=== PATIENT | female | born 1985 | race Caucasian/White ===

== ENCOUNTER 2016-10-09 20:24 | Inpatient (IN) ==
[2016-10-09] MEDS ORDERED: BUTORPHANOL 2 MG/ML VIAL IV PRN (20:52)
[2016-10-09] MEDS ORDERED: ONDANSETRON 4 MG/2 ML VIAL IV PRN (20:52)
[2016-10-09] MEDS: LACTATED RINGERS 1,000 ML IV SCH (21:10)
[2016-10-09 21:17] LABS: Basophils % 0.2 % (0.0-0.8); Eosinophils % 0.2 % (0.00-10.9); Hematocrit 33.6 VOL% (35.7-47.0); Hemoglobin 11.8 GM/DL (12.0-16.0); Immature Granulocytes % 3.1 %; Immature Granulocytes Absolute 0.35 #; Lymphocytes # 1.3 10*3/uL (1.4-4.0); Lymphocytes % 11.6 % (21.3-54.2); Mean Corpuscular HGB Conc 35.1 GM/DL (32-36); Mean Corpuscular Hemoglobin 33 PG (27-34); Mean Corpuscular Volume 94.1 FL (87-102); Mean Platelet Volume 13.6 FL (9.6-12.0); Monocytes # 0.6 10*3/uL (0.11-0.8); Neutrophils # 9.1 10*3/uL (1.4-7.4); Neutrophils % 79.9 % (38.7-73.9); Platelet Count 120 T/CUMM (130-400); Red Blood Count 3.57 MC/CUMM (3.8-5.5); Red Cell Distribution Width 12.6 % (9.3-17.3); White Blood Count 11.4 T/CUMM (4-12)
[2016-10-09 21:46] LABS: Alanine Aminotransferase 107 U/L (13-56); Albumin 2.5 G/DL (3.4-5.0); Alkaline Phosphatase 190 U/L (45-117); Aspartate Amino Transferase 62 U/L (0-37); Bilirubin,Total < 0.39 MG/DL (0.2-1.0); Blood Urea Nitrogen 10 MG/DL (7-18); Glucose 144 MG/DL (74-106); Potassium 3.9 MMOL/L (3.5-5.1); Sodium 136 MMOL/L (136-145); Total Protein 5.8 G/DL (6.4-8.3)
[2016-10-09] MEDS ORDERED: DEXTROSE 50% 25 GM/50 ML VIAL IV PRN (21:52)
[2016-10-09] MEDS ORDERED: GLUCAGON 1 MG VIAL IM PRN (21:52)
[2016-10-10] MEDS ORDERED: TERBUTALINE 1 MG/1 ML VIAL SUBCUT ONE (00:58)
[2016-10-10] MEDS ORDERED: AMPICILLIN INJ 2,000 MG in SODIUM CHLORIDE 0.9% 100 ML IV SCH (01:00)
[2016-10-10] MEDS: LACTATED RINGERS 1,000 ML IV SCH (04:05)
[2016-10-10] MEDS ORDERED: OXYTOCIN/LR 20 UNIT/1,000 ML BAG IV SCH (06:00)
[2016-10-10] MEDS ORDERED: BUTORPHANOL 1 MG/ML VIAL IV ONE (06:10)
[2016-10-10] MEDS ORDERED: NOVOLOG SUBCUT SCH (07:30)
[2016-10-10] MEDS ORDERED: ONDANSETRON 4 MG/2 ML VIAL IV ONE (07:45)
[2016-10-10] MEDS ORDERED: ePHEDrine 50 MG/ML AMP IV PRN (07:45)
[2016-10-10] MEDS ORDERED: fentaNYL 2 MCG/ROPIV 0.2% EPID 150 ML EPIDURAL SCH (07:45)
[2016-10-10] MEDS ORDERED: diphenhydrAMINE 50 MG/1 ML VIAL IV PRN ×2 (07:45)
[2016-10-10] MEDS ORDERED: CITRIC ACID/SODIUM CITRATE 30 ML UDCUP PO ONE (07:45)
[2016-10-10] MEDS ORDERED: hydrOXYzine HCL 25 MG/1 ML VIAL IM PRN (07:45)
[2016-10-10] MEDS ORDERED: PROMETHAZINE 25 MG/1 ML VIAL IM ONE (07:45)
[2016-10-10] MEDS ORDERED: FAMOTIDINE 20 MG/2 ML VIAL IV ONE (07:45)
[2016-10-10] MEDS ORDERED: LIDOCAINE 1% 50 ML VIAL ONE (11:25)
[2016-10-10] MEDS ORDERED: miSOPROStol 200 MCG TABLET ONE (11:26)
[2016-10-10] MEDS ORDERED: METHYLERGONOVINE 0.2 MG/1 ML AMP ONE (11:26)
[2016-10-10] MEDS ORDERED: MEPERIDINE 50 MG/1 ML VIAL ONE (11:26)
[2016-10-10 11:37] LABS: Apearance,Urine Slightly Hazy (Clear); Bilirubin,Urine Negative (Negative); Blood, Urine Large mg/dL (Negative); Glucose,Urine (UA) >=500 mg/dL (Negative); Ketones,Urine 80 mg/dL (Negative); Mucus,Urine Occasional /LPF (Occasional); Nitrite,Urine Negative (Negative); Protein,Urine 30 MG/DL; RBC,Urine 158 /HPF (0-4); Squamous Epithelial Cell,Urine Occasional /HPF (0-10); Urine Color Yellow (Yellow); Urine Specific Gravity 1.011 (1.001-1.035); Urine Urobilinogen < 2.0 EU/DL (0.2-1.0); WBC,Urine 14 /HPF (0-6)
[2016-10-10] MEDS ORDERED: ONDANSETRON 4 MG/2 ML VIAL IV PRN (12:13)
[2016-10-10] MEDS ORDERED: OXYTOCIN/LR 20 UNIT/1,000 ML BAG IV ONE (12:13)
[2016-10-10] MEDS ORDERED: BENZOCAINE 20%/MENTHOL 0.5% SPRAY 56 GM CAN TOP PRN (12:13)
[2016-10-10] MEDS ORDERED: ACETAMINOPHEN 325 MG TABLET PO PRN (12:13)
[2016-10-10] MEDS ORDERED: oxyCODONE/ACETAMINOPHEN 5-325 MG TABLET PO PRN ×2 (12:13)
[2016-10-10] MEDS ORDERED: LANOLIN 50% CREAM 0.3 OZ TUBE TOP PRN (12:13)
[2016-10-10] MEDS ORDERED: MEASLES/MUMPS/RUBELLA VACCINE 0.5 ML VIAL SUBCUT ONE (12:13)
[2016-10-10] MEDS ORDERED: WITCH HAZEL PADS 100/JAR TOP PRN (12:13)
[2016-10-10] MEDS ORDERED: BISACODYL 10 MG SUPP RECTAL PRN (12:13)
[2016-10-10] MEDS ORDERED: HYDROCORTISONE 2.5% RECTAL CREAM 30 GM TUBE TOP PRN (12:13)
[2016-10-10] MEDS ORDERED: RHO(D) IMMUNE GLOBULIN 300 MCG SYRINGE IM ONE (12:13)
[2016-10-10] MEDS ORDERED: DIPH/TET/ACEL PERT BOOSTER VACCINE 0.5 ML VIAL IM ONE (12:13)
--- NOTE | 2016-10-10 12:13 | OB/GYN Progress Note ---
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 Chua dictating vaginal delivery And in LDR environment under sterile conditions, the patient progressed to completely dilated. She was allowed to push and under [epidural] anesthesia had a normal spontaneous vaginal delivery of a live born [male] unweighed [Apgars 9 and 9] over a first-degree midline tear. The 's nose and oropharynx were bulb and DeLee suctioned, and the infant had spontaneous cry after delivery. The cord was doubly clamped and cut and the was handed over to the pediatric team for care. Cord blood was obtained the placenta delivered spontaneously intact and IV Pitocin was done. There were no cervical tears. There were no periurethral tears. First-degree midline tear was repaired with 2-0 Monocryl suture in usual fashion under epidural anesthesia without complication estimated blood loss was 250 mL. There were no complications. The bladder was emptied using a catheter prior to delivery. All sponge needle and instrument counts were correct -3 at the end of the delivery. 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
--- NOTE | 2016-10-10 12:18 | OB/GYN History & Physical ---
History of Present Illness Chief complaint: 37 weeks IDDM with diminishing insulin requirements History of present illness: Ms. Ibarra is a 30 year old female 2 para 1 at 37 weeks estimated gestational age she received 2 doses of Celestone 24 hours apart at 36 and 6 weeks with insulin-dependent diabetes mellitus currently on an insulin pump who has had decreased insulin requirements late in her third trimester. She also has history of traumatic vaginal delivery previously resulting in complicated episiotomy repair. This case was discussed with Dr. Hurley and Dr. Vito Galloway and decision was made to induce at this time Via Cytotec and Pitocin as needed. Home Medications Medication Instructions Recorded Confirmed Type Aspirin 1 tablet PO DAILY 09/27/16 10/09/16 History Insulin Aspart [NovoLOG] 30 units SUBCUT TID W/MEALS 09/27/16 10/09/16 History Insulin Glargine [Lantus] 31 units SUBCUT BEDTIME 09/27/16 10/09/16 History Vits #90/Iron Fum/FA 1 tablet PO DAILY 10/09/16 10/09/16 History [ Formula Tablet] Allergies Allergy/AdvReac Type Severity Reaction Status Date / Time No Known Allergies Allergy Verified 09/27/16 08:47 12 point system: reviewed and no additional remarkable complaints except as stated Medical,Surgical,& Family Hx - Medical History HEENT: No history of: Eye Problem Endocrine: History of: Diabetes Mellitus (IDDM) (type 1 dm) Reproductive: No history of: Ectopic , Complication - Surgical History Reproductive Surgeries: Patient denies;: Section - Family History Family History: Reports;: Family Diabetes (pt's father type 2), Family Hypertension (pt's father), Family Stroke (mgm), Additional Family History ( father sleep apnea) - Social History Smoking Status: Never smoker Frequency of Alcohol Use: None Type of Drug Use: None 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: Vital Signs Temp Pulse Resp BP 10/10/16 07:35 97.7 F 10/10/16 04:00 97.7 F 75 18 113/61 10/10/16 00:00 97.2 F L 71 18 127/77 General appearance: no acute distress - Head Head exam: Present: normal inspection, normocephalic, atraumatic - Respiratory Respiratory exam: Present: clear to auscultation bilaterally - Breast Breasts: as per HPI Menstruation: as per HPI - Cardiovascular Cardiovascular exam: Present: regular rate and rhythm - GI/Abdominal GI/Abdominal exam: Present: normal bowel sounds - Extremities Exam Extremities exam: Present: normal inspection - Back Exam Back exam: Present: normal inspection - Neurological Exam Neurological exam: Present: alert, oriented X3 - Psychiatric Psychiatric exam: Present: normal affect, normal mood - Skin Skin exam: Present: normal color Assessment and Plan (1) with 37 weeks completed gestation Status: Acute Current Visit: Yes (2) Insulin dependent diabetes mellitus Status: Acute Current Visit: Yes (3) Diminished insulin requirements Status: Acute Current Visit: Yes (4) History of traumatic vaginal delivery Status: Acute Current Visit: Yes Results - Labs CBC & BMP: 10/09/16 21:10 10/09/16 21:10 Quality Measures - VTE Contraindication to Pharmacological VTE Prophylaxis: Clinical assessment deems Pt at low risk, no prophalaxis needed
[2016-10-10] MEDS ORDERED: INSULIN ASPART PROTAMINE/ASPART 70/30 100 UNIT/ML SUBCUT SCH (16:30)
[2016-10-10] MEDS ORDERED: INSULIN ASPART 30 UNIT SUBCUT SCH (17:00)
--- NOTE | 2016-10-10 18:19 | Anesthesia Post-Op ---
Anesthesia Post OP - Post Ansesthetic Evaluation Patient seen in post op: Yes Resp: within normal limits CV: within normal limits Mental: within normal limits Temp: within normal limits [id number]: within normal limits Nausea and Vomiting: within normal limits Pain: within normal limits
[2016-10-10] MEDS: IBUPROFEN 800 MG TABLET PO PRN (19:30)
[2016-10-10] MEDS ORDERED: INSULIN GLARGINE 100 UNIT/ML SUBCUT SCH ×2 (21:00)
[2016-10-10] MEDS ORDERED: INSULIN GLARGINE SUBCUT SCH (21:00)
[2016-10-10] MEDS: DOCUSATE SODIUM 100 MG CAPSULE PO SCH (22:17)
[2016-10-11] MEDS: IBUPROFEN 800 MG TABLET PO PRN (05:59)
[2016-10-11 06:16] LABS: Basophils % 0.3 % (0.0-0.8); Eosinophils # 0.1 10*3/uL (0.0-0.87); Eosinophils % 0.9 % (0.00-10.9); Hematocrit 34.9 VOL% (35.7-47.0); Hemoglobin 11.7 GM/DL (12.0-16.0); Immature Granulocytes Absolute 0.28 #; Lymphocytes # 2.1 10*3/uL (1.4-4.0); Lymphocytes % 15.6 % (21.3-54.2); Mean Corpuscular HGB Conc 33.5 GM/DL (32-36); Mean Corpuscular Hemoglobin 33 PG (27-34); Mean Corpuscular Volume 97.2 FL (87-102); Monocytes # 0.9 10*3/uL (0.11-0.8); Monocytes % 6.2 % (1.7-12.7); Neutrophils # 10.3 10*3/uL (1.4-7.4); Platelet Count 104 T/CUMM (130-400); Red Blood Count 3.59 MC/CUMM (3.8-5.5); Red Cell Distribution Width 12.9 % (9.3-17.3); White Blood Count 13.7 T/CUMM (4-12)
--- NOTE | 2016-10-11 08:56 | OB/GYN Progress Note ---
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: Patient is doing well she is eating ambulating and voiding She is afebrile and her vital signs are stable Her fundus is firm and contracted She has decreased lochia Assessment #1 day #1 doing well Plan continue present management with expected DC tomorrow Exam PHYSICAL SCIENCE TEACHER - Constitutional Vitals: Vital Signs Temp Pulse Resp BP Pulse Ox 10/11/16 07:21 97.1 F L 58 L 18 116/66 99 10/11/16 03:45 97.8 F 54 L 16 112/70 98 10/11/16 00:20 97.4 F L 63 16 118/71 95 10/10/16 19:30 98.2 F 60 16 124/70 96 10/10/16 16:00 98.3 F 61 20 124/74 10/10/16 12:00 97.6 F Results - Labs CBC & BMP: 10/11/16 05:31 10/09/16 21:10
[2016-10-11] MEDS ORDERED: MULTIVITAMIN (PRENATAL) TABLET PO SCH (09:00)
[2016-10-11] MEDS: DOCUSATE SODIUM 100 MG CAPSULE PO SCH (09:09)
[2016-10-11 11:36] VITALS: BP 130/81
--- NOTE | 2016-10-11 12:46 | Discharge Summary ---
Hospital Course - Hospital Course Hospital Course: patient did well. She had quick return of bowel bladder function. She remained afebrile and normotensive throughout her hospitalization. Her insulin dosage was halved after delivery was readjusted patient is well versed in insulin management. She was discharged on ADA diet Diagnosis - Discharge Diagnosis (1) with 37 weeks completed gestation Status: Acute (2) Insulin dependent diabetes mellitus Status: Acute (3) Diminished insulin requirements Status: Acute (4) History of traumatic vaginal delivery Status: Acute Specialty Discharge - Follow Up or Referrals Follow up with: Shahab Chua MD [Primary Care Provider] - 10/24/16 2:00 pm Discharge Plan - Discharge Data Disposition: Disch To Home/Self Care Condition at Discharge: Stable Discharge Diet: diabetic diet, other Activity: increase activity as tolerated, other (Pelvic rest) Hygiene: may shower Weight Bearing at Discharge: full weight bearing Driving: no restrictions Contact your physician if you experience:: fever over 101, Difficulty voiding, Redness or swelling, Nausea/Vomiting, Shortness of breath, Bleeding, pain uncontrolled by pain medications - Discharge Medications New HYDROcodone/ACETAMIN 5-325 [[place] 5-325] 1 tablet PO Q4H PRN #10 tablet PRN Reason: Abdominal Pain Ibuprofen Tab [Motrin Tab] 800 mg PO Q6H PRN tablet PRN Reason: Pain Moderate (4-7) Insulin Glargine [Lantus] 16 unit SUBCUT BEDTIME unit Continue Insulin Glargine [Lantus] 31 units SUBCUT BEDTIME Insulin Aspart [NovoLOG] 30 units SUBCUT TID W/MEALS Discontinued Aspirin 1 tablet PO DAILY Vits #90/Iron Fum/FA [ Formula Tablet] 1 tablet PO DAILY - Follow Up or Referral Follow Up: Shahab Chua MD [Primary Care Provider] - 10/24/16 2:00 pm - Forms/Instructions Instructions: Perineal Care (DC), Vaginal Delivery (DC), Bleeding (DC) Exam - Constitutional Vitals: Period Temp Pulse Resp BP Sys/Ricci Pulse Ox Last 24 Hr 97.1 F-98.5 F 54-63 16-20 112-130/66-81 95-99 Discharge Results Procedures and tests throughout hospitalization: Pending Orders 10/10/16 Urine Culture Routine Labs on day of discharge: Labs from last 24 hours 10/11/16 05:31 WBC 13.7 H RBC 3.59 L Hgb 11.7 L Hct 34.9 L MCV 97.2 MCH 33 MCHC 33.5 RDW 12.9 Plt Count 104 L MPV 13.0 H Neut % (Auto) 75.0 H Lymph % (Auto) 15.6 L [place] % (Auto) 6.2 Eos % (Auto) 0.9 Baso % (Auto) 0.3 Neut # (Auto) 10.3 H Lymph # (Auto) 2.1 [place] # (Auto) 0.9 H Eos # (Auto) 0.1 Baso # (Auto) 0.0 Immature Gran % 2.0 Nucleated RBC % 0.0 Immature Gran # 0.28 Nucleated RBCs # 0.00 Preliminary micro results at discharge 10/10/16 Unknown Urine Culture - Preliminary Urine,Catheterized No Growth at 24 hours. DS: Provider Date of admission: 10/09/16 20:24 Primary care physician: Юлия Longo Attending physician on admission: Юлия Longo Consults: 10/09/16 20:52 Consult to Anesthesiology [CONS] Routine Consulting Provider: Reason for Anesthesiology: Epidural Consult Comment: Epidural for pain managment 10/10/16 12:13 Consult to Medicaid Biller [CONS] Routine Consult Medicaid Biller: Breast Feeding Discharging clinician: Юлия Longo Expected date of discharge: 10/11/16
== END 2016-10-11 16:00 | disposition home or self-care (01) | DRG 774 ==
LOC: N.LD 20:24 → N.OB 10-10 15:19
PROVIDERS: ADMIT Specialist; ATTEND Specialist

== ENCOUNTER 2017-12-10 19:42 | Inpatient (IN) ==
[2017-12-10] MEDS ORDERED: OXYTOCIN/LR 20 UNIT/1,000 ML BAG IV ONE (23:53)
[2017-12-11] MEDS: LACTATED RINGERS 1,000 ML IV SCH ×4 (00:15→20:42)
[2017-12-11] MEDS: OXYTOCIN/LR 20 UNIT/1,000 ML BAG IV SCH (00:18)
[2017-12-11] MEDS ORDERED: BUTORPHANOL 2 MG/ML VIAL IV PRN (00:26)
[2017-12-11] MEDS ORDERED: ONDANSETRON 4 MG/2 ML VIAL IV PRN ×2 (00:26→08:44)
[2017-12-11 01:00] LABS: Basophils % 0.4 % (0.0-0.8); Eosinophils # 0.1 10*3/uL (0.0-0.87); Eosinophils % 1.4 % (0.00-10.9); Hematocrit 36.7 VOL% (35.7-47.0); Hemoglobin 11.8 GM/DL (12.0-16.0); Immature Granulocytes % 2.3 %; Immature Granulocytes Absolute 0.23 #; Lymphocytes # 1.7 10*3/uL (1.4-4.0); Lymphocytes % 17.2 % (21.3-54.2); Mean Corpuscular HGB Conc 32.2 GM/DL (32-36); Mean Corpuscular Hemoglobin 32 PG (27-34); Mean Corpuscular Volume 97.9 FL (87-102); Mean Platelet Volume 12.5 FL (9.6-12.0); Monocytes # 0.8 10*3/uL (0.11-0.8); Monocytes % 7.6 % (1.7-12.7); Neutrophils % 71.1 % (38.7-73.9); Platelet Count 158 T/CUMM (130-400); Red Blood Count 3.75 MC/CUMM (3.8-5.5); Red Cell Distribution Width 12.8 % (9.3-17.3); White Blood Count 9.8 T/CUMM (4-12)
[2017-12-11 01:21] LABS: Albumin 2.4 G/DL (3.4-5.0); Bilirubin,Total 0.7 MG/DL (0.2-1.0); Calcium 8.9 MG/DL (8.5-10.1); Osmolality,Calculated 274.7 MOS/KG (273-304); Potassium 4.1 MMOL/L (3.5-5.1); Total Protein 6.5 G/DL (6.4-8.3)
[2017-12-11] MEDS ORDERED: hydrOXYzine HCL 25 MG/1 ML VIAL IM PRN (01:47)
[2017-12-11] MEDS ORDERED: PROMETHAZINE 25 MG/1 ML VIAL IM ONE (01:47)
[2017-12-11] MEDS ORDERED: NALOXONE 0.4 MG/ML VIAL IV PRN (01:47)
[2017-12-11] MEDS ORDERED: diphenhydrAMINE 50 MG/1 ML VIAL IV PRN ×2 (01:47)
[2017-12-11] MEDS ORDERED: CITRIC ACID/SODIUM CITRATE 30 ML UDCUP PO ONE (01:50)
[2017-12-11] MEDS ORDERED: FAMOTIDINE 20 MG/2 ML VIAL IV ONE (01:50)
[2017-12-11] MEDS ORDERED: LACTATED RINGERS 1,000 ML IV ONE (02:53)
[2017-12-11] MEDS: ePHEDrine 50 MG/ML AMP IV PRN ×2 (07:30→07:34)
[2017-12-11] MEDS ORDERED: miSOPROStol 200 MCG TABLET ONE (08:12)
[2017-12-11] MEDS ORDERED: LIDOCAINE 1% 50 ML VIAL ONE (08:12)
[2017-12-11] MEDS ORDERED: METHYLERGONOVINE 0.2 MG/1 ML AMP ONE (08:13)
[2017-12-11] MEDS ORDERED: WITCH HAZEL PADS 100/JAR TOP PRN (08:44)
[2017-12-11] MEDS ORDERED: LANOLIN 50% CREAM 0.3 OZ TUBE TOP PRN (08:44)
[2017-12-11] MEDS ORDERED: DIPH/TET/ACEL PERT BOOSTER VACCINE 0.5 ML VIAL IM ONE (08:44)
[2017-12-11] MEDS ORDERED: ACETAMINOPHEN 325 MG TABLET PO PRN (08:44)
[2017-12-11] MEDS ORDERED: RHO(D) IMMUNE GLOBULIN 300 MCG SYRINGE IM ONE (08:44)
[2017-12-11] MEDS ORDERED: BISACODYL 10 MG SUPP RECTAL PRN (08:44)
[2017-12-11] MEDS ORDERED: OXYTOCIN/LR 20 UNIT/1,000 ML BAG IV ONE (08:44)
[2017-12-11] MEDS ORDERED: MEASLES/MUMPS/RUBELLA VACCINE 0.5 ML VIAL SUBCUT ONE (08:44)
[2017-12-11] MEDS ORDERED: BENZOCAINE 20%/MENTHOL 0.5% SPRAY 56 GM CAN TOP PRN (08:44)
[2017-12-11] MEDS ORDERED: HYDROCORTISONE 2.5% RECTAL CREAM 30 GM TUBE TOP PRN (08:44)
[2017-12-11] MEDS ORDERED: oxyCODONE/ACETAMINOPHEN 5-325 MG TABLET PO PRN ×2 (08:44)
[2017-12-11] MEDS ORDERED: ACETAMINOPHEN INJ 1,000 MG in PREMIX 1 EACH IV ONE (09:37)
[2017-12-11] MEDS ORDERED: GLUCAGON 1 MG VIAL IM PRN (09:47)
[2017-12-11] MEDS ORDERED: DEXTROSE 50% 25 GM/50 ML VIAL IV PRN (09:47)
[2017-12-11] MEDS: IBUPROFEN 800 MG TABLET PO PRN ×2 (10:09→20:58)
[2017-12-11] MEDS: fentaNYL 2 MCG/ROPIV 0.2% EPID 100 ML EPIDURAL SCH (20:41)
[2017-12-11] MEDS: DOCUSATE SODIUM 100 MG CAPSULE PO SCH ×2 (20:42→20:56)
[2017-12-12 04:12] LABS: Basophils % 0.4 % (0.0-0.8); Eosinophils # 0.2 10*3/uL (0.0-0.87); Eosinophils % 1.4 % (0.00-10.9); Hematocrit 30.6 VOL% (35.7-47.0); Hemoglobin 10.1 GM/DL (12.0-16.0); Immature Granulocytes % 1.9 %; Immature Granulocytes Absolute 0.21 #; Lymphocytes % 17.7 % (21.3-54.2); Mean Corpuscular Hemoglobin 32 PG (27-34); Mean Corpuscular Volume 95.3 FL (87-102); Mean Platelet Volume 12.7 FL (9.6-12.0); Monocytes # 0.8 10*3/uL (0.11-0.8); Monocytes % 6.8 % (1.7-12.7); Neutrophils # 7.9 10*3/uL (1.4-7.4); Neutrophils % 71.8 % (38.7-73.9); Platelet Count 142 T/CUMM (130-400); Red Blood Count 3.21 MC/CUMM (3.8-5.5); White Blood Count 11.1 T/CUMM (4-12)
[2017-12-12] MEDS: LACTATED RINGERS 1,000 ML IV SCH (06:16)
[2017-12-12] MEDS: OXYTOCIN/LR 20 UNIT/1,000 ML BAG IV SCH (06:16)
[2017-12-12 07:32] VITALS: BP 102/69
[2017-12-12] MEDS: IBUPROFEN 800 MG TABLET PO PRN (07:45)
[2017-12-12] MEDS: DOCUSATE SODIUM 100 MG CAPSULE PO SCH (07:45)
== END 2017-12-12 09:40 | disposition home or self-care (01) | DRG 774 ==
LOC: N.LDOUT 19:42 → N.LD 19:45 → N.OB 12-11 11:46
PROVIDERS: ADMIT Specialist; ATTEND Specialist